=== PATIENT | male | born 1935 | race Caucasian/White ===

== ENCOUNTER 2020-07-14 17:02 | Emergency (ER) | payer MEDICARE ==
[~2020-07-14] VITALS: Ht 170.2 cm; Wt 76.4 kg
[2020-07-14] MEDS ORDERED: AZIT-63 PO (17:53)
[2020-07-14] MEDS ORDERED: azithromycin 250mg tablet PO ONE (17:55)
[2020-07-14 18:32] VITALS: BP 167/68
== END 2020-07-14 18:30 | disposition home or self-care (01) ==
LOC: ER 17:49
DX: R05 Cough (principal); R07.89 Other chest pain; R06.02 Shortness of breath; R11.2 Nausea with vomiting, unspecified; Z72.89 Other problems related to lifestyle; Z79.899 Other long term (current) drug therapy
CPT/HCPCS: 93005; 99283

== ENCOUNTER 2024-01-01 09:24 | Emergency (ER) | payer MEDICARE ==
[~2024-01-01] VITALS: Ht 167.6 cm; Wt 65.8 kg
[2024-01-01] MEDS ORDERED: DICL20GE TOP (11:13)
[2024-01-01 11:18] VITALS: BP 134/80; PULSE 78; RESP 18; TEMP 97.6; O2SAT 97
== END 2024-01-01 11:22 | disposition home or self-care (01) ==
LOC: ER 09:25
DX: M25.512 Pain in left shoulder (principal); Z79.899 Other long term (current) drug therapy; Z72.89 Other problems related to lifestyle; Z85.89 Personal history of malignant neoplasm of other organs and systems
CPT/HCPCS: 73030; 99284

== ENCOUNTER 2024-12-01 12:00 | Emergency (ER) | payer MEDICARE ==
[~2024-12-01] VITALS: Ht 170.2 cm; Wt 75.0 kg
[~2024-12-01 12:00] MED LIST: DICL20GE TOP
[2024-12-01 12:03] VITALS: BP 161/75; PULSE 79; RESP 16; O2SAT 98
[2024-12-01] MEDS ORDERED: CLOT30CR19 TOP (12:51)
--- NOTE | 2024-12-01 12:53 | Physician Documentation ---
History of Present Illness ~ Chief Complaint: Mouth Pain Stated Complaint: LIP PAIN Time Seen by MD: 12:27 HPI 89-year-old male presents to the ED with a complaint of cracked lower lip x1 month. States he has tried everything OTC and he could denies any drainage Day of Onset: Dec 01, 2024 Medication Reconciliation Allergies: Coded Allergies: No Known Allergies (Unverified , 12/01/24) Scheduled Clotrimazole (Clotrimazole), 1 APPLIC TOP Q12H Diclofenac Sodium (Voltaren Arthritis Pain), 1 GM TOP Q6H Past Medical History Past Medical History: *CANCER* Past Surgical History: noncontributory Alcohol Use: Occasionally Drug Use: none Lives with: Family Lives In: Home Review of Systems All Other Systems at this time: Reviewed and Negative ROS As stated above in the HPI, otherwise all systems are reviewed and negative. Physical Exam Vital Signs: Temperature: 97.7, Source: Temporal, Heart Rate: 79, Respiratory Rate: 16, BP: 161/75, Pulse Oximetry: 98, Weight: 75.000 Oxygen Flow Rate: 0 Physical Exam General: Alert, no apparent distress. HEENT: PERRL, EOMI, no injection, moist mucous membranes. crack lower lip with yellowish lesion Respiratory: Lungs clear, no respiratory distress. Progress Results/Orders Results/Orders Vital Signs 12/01/24 12/01/24 12:03 12:57 Temp 97.7 97.7 Pulse 79 Resp 16 B/P (MAP) 161/75 Pulse Ox 98 O2 Flow Rate 0 Medical Decision Making Findings Hearing patient is used multiple OT to see remedies I can not rule out a Valentine infection in his lip. Been treat him empirically with a antifungal cream Departure Disposition: 01 HOME / SELF CARE / HOMELESS Impression: Primary Impression: Skin lesion Condition: Stable Discharge Instructions: Oral Ulcers Referrals: NO PRIMARY CARE PROVIDER (PCP) Prescriptions Clotrimazole (Clotrimazole) 1 % Cream..g. 1 APPLIC TOP Q12H for 7 Days, #15 GM 0 Refills apply to affected area(s) Prov: QUANG SARAVIA NP 12/01/24 Signature Scribe Signature: r Attestation: Scribed for Quang Saravia Returned Goods Repairer by Quang Gutierrez NP . 12/01/24 12:52 QUANG SARAVIA NP Dec 01, 2024 12:52
[2024-12-01 12:57] VITALS: TEMP 97.7
== END 2024-12-01 12:58 | disposition home or self-care (01) ==
LOC: ER 12:01
DX: L98.9 Disorder of the skin and subcutaneous tissue, unspecified (principal)
CPT/HCPCS: 99282

== ENCOUNTER 2025-01-03 07:32 | Emergency (ER) | payer MEDICARE ==
[~2025-01-03] VITALS: Ht 165.1 cm; Wt 55.0 kg
[~2025-01-03 07:32] MED LIST changes: +CLOT30CR19 TOP
[2025-01-03 07:33] VITALS: TEMP 98.4
--- NOTE | 2025-01-03 09:31 | Physician Documentation ---
History of Present Illness ~ Chief Complaint: Mouth Pain Stated Complaint: SORE LIP Time Seen by MD: 08:22 Source: patient Exam Limitations: no limitations HPI Chief Complaint: Sore on lip Caveat: None Independent Historians: None History of Present Illness: Review of systems: All systems were reviewed and are negative except for what is indicated in the history of present illness. Past Medical History: Past Surgical History: Social History: Medications: Reviewed as documented Nursing Notes Allergies: Reviewed as documented in Nursing Notes Medication Reconciliation Allergies: Coded Allergies: No Known Allergies (Unverified , 01/03/25) Scheduled Clotrimazole (Clotrimazole), 1 APPLIC TOP Q12H Diclofenac Sodium (Voltaren Arthritis Pain), 1 GM TOP Q6H Mupirocin* (Bactroban*), 1 APPLIC TOP Q8H Valacyclovir HCl (Valtrex), 1 TAB PO Q12H Past Medical History Past Medical History: *CANCER* Past Surgical History: noncontributory Alcohol Use: Occasionally Drug Use: none Lives with: Family Lives In: Home Review of Systems All Other Systems at this time: Reviewed and Negative ROS PATIENT DENIES ANY OTHER ACUTE SYMPTOMS OTHER THAN ABOVE. ALL OTHER SYSTEMS ARE NEGATIVE Physical Exam Vital Signs: RN Vital Signs have been reviewed: Yes, Temperature: 98.4, Source: Temporal, Heart Rate: 56, Respiratory Rate: 19, BP: 161/62, Pulse Oximetry: 98, Weight: 55.000 Oxygen Flow Rate: 0 Pulse Oximetry Reflects: adequate oxygenation Physical Exam General Appearance: No distress HEENT: Normal OP, moist oral mucosa, PERRL, EOMI Neck: supple, normal ROM, trachea midline Pulmonary: No respiratory distress, CTA, BS equal Cardiac: RRR, no murmur, rub or gallop, Skin: intact, dry, warm, see HEENT above Neuro: AAOx3, speech is clear, no focal motor weakness Psych: normal affect, good eye contact, no apparent hallucination, normal speech Progress Results/Orders Results/Orders Vital Signs 01/03/25 01/03/25 01/03/25 07:33 08:08 09:46 Temp 98.4 Pulse 86 56 57 Resp 18 19 18 B/P (MAP) 111/78 161/62 (95) 145/74 (97) Pulse Ox 99 98 98 O2 Flow Rate 0 0 0 Medical Decision Making Findings Differential diagnosis includes but is not limited to: ORAL CANCER, STAPH INFECTION, VIRAL INFECTION Emergency department course/medical decision-making: Departure Time of Disposition: 09:33 Disposition: 01 HOME / SELF CARE / HOMELESS Impression: Primary Impression: Lip lesion Condition: Stable Discharge Instructions: Oral Ulcers Additional Instructions: RECOMMEND YOUR DOCTOR REFER YOU TO ENT. CALL YOUR DOCTOR TODAY TO GET THE REFERRAL. CANCER NEEDS TO BE RULED OUT. THE CAUSE OF THE SORE IS UNKNOWN. I WILL PRESCRIBE YOU A TOPICAL ANTIBIOTIC AND AN ANTIVIRAL FOR A WEEK. Prescriptions Valacyclovir HCl (Valtrex) 1,000 Mg Tablet 1 TAB PO Q12H for 7 Days, #14 TAB 0 Refills Prov: DELBERT WING MD 01/03/25 Mupirocin* (Bactroban*) 22 Gm Tube 1 APPLIC TOP Q8H for 7 Days, #22 GM apply to affected area(s) Prov: DELBERT WING MD 01/03/25 Education Educated: Patient Educated regarding: diagnosis, treatment, need for follow up Signature Scribe Signature: NO SCRIBE Attestation: NO SCRIBE DELBERT WING MD Jan 03, 2025 09:31
[2025-01-03] MEDS ORDERED: MUPI22OI30 TOP (09:36)
[2025-01-03] MEDS ORDERED: VALA10002 PO (09:36)
[2025-01-03 09:46] VITALS: BP 145/74; PULSE 57; RESP 18; O2SAT 98
== END 2025-01-03 09:50 | disposition home or self-care (01) ==
LOC: ER 07:33
DX: K13.0 Diseases of lips (principal)
CPT/HCPCS: 99284